=== PATIENT | male | born 1990 | race Caucasian/White ===

== ENCOUNTER 2022-05-07 10:46 | Emergency (ER) | payer MEDICAID ==
[~2022-05-07] VITALS: Ht 172.7 cm; Wt 72.7 kg
[2022-05-07 10:49] VITALS: BP 122/59
[2022-05-07] MEDS: BACITRACIN 28 GM OINTMENT TP ONE (16:45)
[2022-05-07] MEDS: TraMADol HCL 50 MG TABLET PO ONE (16:45)
[2022-05-07] MEDS: ACETAMINOPHEN 500 MG TABLET PO ONE (16:46)
[2022-05-07] MEDS: PERTUSS(ACELL),DIPH,TET VAC/PF 0.5 ML SYRINGE IM. ONE (16:47)
[2022-05-07] MEDS: POVIDONE-IODINE 10% 15 ML SOLUTION UD TP ONE (16:48)
[2022-05-07] MEDS: LIDOCAINE 1% 10 ML VIAL PERC ONE (16:48)
== END 2022-05-07 18:35 | disposition home or self-care (01) ==
LOC: EMS 10:53
DX: S61.210A Laceration without foreign body of right index finger without damage to nail, initial encounter (principal); W26.9XXA Contact with unspecified sharp object(s), initial encounter; Y93.89 Activity, other specified; Y92.89 Other specified places as the place of occurrence of the external cause; Y99.8 Other external cause status
CPT/HCPCS: 99284; 90715; 90471; 12001; J3490